=== PATIENT | male | born 1975 | race American Indian/Alaskan Native ===

== ENCOUNTER 2018-01-04 01:47 | Emergency (ER) | payer BC, OTHER ==
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
[2018-01-04 02:15] LABS: CHLORIDE,CL 105 mmol/L (101-111); SODIUM,NA 137 mmol/L (135-145)
[2018-01-04] MEDS ORDERED: Phenytoin 1,000 MG in Sodium Chloride 0.9% 100 ML IV ONE (02:43)
[2018-01-04] MEDS ORDERED: Sodium Chloride 0.9% 1,000 ML IV ONE (03:05)
== END 2018-01-04 03:44 ==
LOC: DL.ED 01:47
DX: R56.9 Unspecified convulsions (principal); S01.512A Laceration without foreign body of oral cavity, initial encounter; S40.812A Abrasion of left upper arm, initial encounter; R23.3 Spontaneous ecchymoses; W19.XXXA Unspecified fall, initial encounter; Y92.009 Unspecified place in unspecified non-institutional (private) residence as the place of occurrence of the external cause
CPT/HCPCS: 36415; 70450; 72125; 80053; 80305; 81001; 83735; 85025; 85610; 96365; 99285; G0480; J1165; J7030; J7050

== ENCOUNTER 2019-09-13 20:38 | Emergency (ER) | payer BC, OTHER ==
[2019-09-13 22:13] VITALS: BP 133/89; PULSE 81
[2019-09-13] MEDS ORDERED: Acyclovir 200 MG Cap ONE (23:19)
--- NOTE | 2019-09-13 23:41 | EDM.PDOC ---
ED HPI GENERAL MEDICAL PROBLEM - General Chief Complaint: Skin Complaint Stated Complaint: POSSIBLE SHINGLES Time Seen by Provider: 09/13/19 21:50 Source of Information: Reports: Patient, RN History Limitations: Reports: No Limitations - History of Present Illness INITIAL COMMENTS - FREE TEXT/NARRATIVE: ED with c/o rash to left side, concerned if shingles. 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 Hx brain cancer, Recent wound infection scalp incision, completed antibiotic course. Wound still draining but better. Currently taking Keppra. Not on steroids. Treatments [employer]: Reports: NSAIDS Left Abdomen Pain Score (Numeric/FACES): 8 - Related Data Allergies Allergy/AdvReac Type Severity Reaction Status Date / Time No Known Allergies Allergy Verified 09/13/19 22:13 Home Meds: Home Meds levETIRAcetam [Keppra] 500 mg PO BID 09/13/19 [History] Past Medical History - Past Health History Medical/Surgical History: Denies Medical/Surgical History HEENT History: Reports: Impaired Vision Musculoskeletal History: Reports: Fracture Neurological History: Reports: Seizure Oncologic (Cancer) History: Reports: Other (See Below) Other Oncologic History: Brain CA and brain surg. Dermatologic History: Reports: None Social & Family History - Family History Family Medical History: Noncontributory - Tobacco Use Smoking Status *Q: Never Smoker Second Hand Smoke Exposure: No - Caffeine Use Caffeine Use: Reports: Coffee - Recreational Drug Use Recreational Drug Use: No ED ROS GENERAL - Review of Systems Review Of Systems: Comprehensive ROS is negative, except as noted in HPI. ED EXAM, SKIN/RASH Exam: See Below Exam Limited By: No Limitations General Appearance: Alert, No Apparent Distress Ears: Normal External Exam Nose: Normal Inspection Throat/Mouth: Normal Inspection Head: Normocephalic, Other (mid parietal healed incision no redness, 2mm open are draining cloudy thick discharge.) Respiratory/Chest: No Respiratory Distress, Lungs Clear, Normal Breath Sounds Cardiovascular: Normal Peripheral Pulses Back Exam: Other (left lateral waist rash ) Psychiatric: Normal Affect, Normal Mood Skin: Warm, Dry, Zoster-Like Rash (left lateral upper waist and left mid flank) Location, Skin: Back Characteristics: Maculopapular, Vesicular Course - Vital Signs Last Recorded V/S: Last Vital Signs Temp 97.3 F 09/13/19 21:45 Pulse 81 09/13/19 21:45 Resp 16 09/13/19 21:45 BP 133/89 09/13/19 21:45 Pulse Ox 100 09/13/19 21:45 - Orders/Labs/Meds Meds: Medications Discontinued Medications Generic Name Dose Route Start Last Admin Trade Name [place] PRN Reason Stop Dose Admin Acyclovir Confirm 09/13/19 23:19 Zovirax Administered 09/13/19 23:20 Dose 800 mg .ROUTE .STK-MED ONE Acyclovir Confirm 09/14/19 00:05 Zovirax Administered 09/14/19 00:06 Dose 4,000 mg .ROUTE .STK-MED ONE Departure - Departure Time of Disposition: 23:38 Disposition: Home, Self-Care 01 Condition: Good Clinical Impression: Shingles outbreak Qualifiers: Herpes zoster complications: disseminated zoster Qualified Code(s): B02.7 - Disseminated zoster - Discharge Information *PRESCRIPTION DRUG MONITORING PROGRAM REVIEWED*: No *COPY OF PRESCRIPTION DRUG MONITORING REPORT IN PATIENT KATHY: No Instructions: Shingles, [id number] Referrals: PCP,None [Primary Care Provider] - Forms: ED Department Discharge Additional Instructions: tylenol 650mg every 4 hours as needed for discomfort ACyclovir 800mg 5 times daily for one week clinic follow up as needed recheck if fevers, severe pain or redness Keep areas covered Avoid those with poor immune systems
[2019-09-14] MEDS ORDERED: Acyclovir 200 MG Cap ONE (00:05)
== END 2019-09-13 23:45 | disposition home or self-care (01) ==
LOC: DL.ED 20:38
DX: B02.7 Disseminated zoster (principal); R56.9 Unspecified convulsions; Z79.899 Other long term (current) drug therapy; Z85.841 Personal history of malignant neoplasm of brain
CPT/HCPCS: 99283

== ENCOUNTER 2020-03-26 20:58 | Emergency (ER) | payer BC, OTHER ==
[2020-03-26] MEDS ORDERED: LORazepam 2 MG/ML SDV IVPUSH PRN (21:07)
[2020-03-26] MEDS ORDERED: Sodium Chloride 0.9% 1,000 ML IV SCH (21:15)
--- NOTE | 2020-03-26 21:16 | CT ---
PROCEDURE INFORMATION: Exam: CT Head Without Contrast Exam date and time: 03/26/2020 9:07 PM Age: 45 years old Clinical indication: Weakness, facial; Prior surgery; Surgery date: 6+ months; Additional info: Right facial weakness TECHNIQUE: Imaging protocol: Computed tomography of the head without contrast. Radiation optimization: All CT scans at this facility use at least one of these dose optimization techniques: automated exposure control; mA and/or kV adjustment per patient size (includes targeted exams where dose is matched to clinical indication); or iterative reconstruction. Other technique: STROKE PROTOCOL was implemented. COMPARISON: CT Head wo Cont 01/04/2018 2:04 AM FINDINGS: Brain: Encephalomalacia changes left posterior parietal lobe. No hemorrhage, mass effect or midline shift. Age-related atrophy and chronic white matter ischemic changes, with no evidence of an acute intracranial abnormality. Ventricles: Normal. No ventriculomegaly. Bones/joints: No acute fracture. Postoperative changes of the left parietal bone. Sinuses: Visualized sinuses are unremarkable. No fluid levels. Mastoid air cells: Visualized mastoid air cells are well aerated. Soft tissues: No acute changes IMPRESSION: 1. Encephalomalacia changes left posterior parietal lobe. 2. No hemorrhage, mass effect or midline shift. Follow-up MRI of the brain may be of further benefit, as clinically warranted. 3. Age-related atrophy and chronic white matter ischemic changes, with no evidence of an acute intracranial abnormality. ASSESSMENT: ASPECTS ([place] Stroke Program Early CT Score) is 10.
--- NOTE | 2020-03-26 21:42 | EDM.PDOC ---
ED HPI GENERAL MEDICAL PROBLEM - General Chief Complaint: Neuro Symptoms/Deficits Stated Complaint: AMBULANCE Time Seen by Provider: 03/26/20 21:00 Source of Information: Reports: Patient History Limitations: Reports: No Limitations - History of Present Illness INITIAL COMMENTS - FREE TEXT/NARRATIVE: ED via [facility] with report of possible stroke experienced right facial weakness, mouth droop difficulty talking around 2015 lasted less than 5 minutes, took 250mg of kepra and within one minute reported symptoms resolved. had weaned of keppra 3 weeks ago. 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 Reports no residual effects other than problems with incision not healing. Patient immediately to CT on arrival. - Related Data Allergies Allergy/AdvReac Type Severity Reaction Status Date / Time No Known Allergies Allergy Verified 03/26/20 21:48 Home Meds: Home Meds . [No Known Home Meds] 03/26/20 [History] Past Medical History - Past Health History Medical/Surgical History: Denies Medical/Surgical History HEENT History: Reports: Impaired Vision Musculoskeletal History: Reports: Fracture Neurological History: Reports: Seizure Oncologic (Cancer) History: Reports: Other (See Below) Other Oncologic History: Brain CA and brain surg. Dermatologic History: Reports: None Social & Family History - Family History Family Medical History: Noncontributory - Caffeine Use Caffeine Use: Reports: Coffee ED ROS GENERAL - Review of Systems Review Of Systems: See Below Constitutional: Reports: Weakness (right lasted less than 5 minutes). Denies: Fever, Chills, Diaphoresis HEENT: Reports: No Symptoms. Denies: Vision Change Respiratory: Reports: No Symptoms Cardiovascular: Reports: No Symptoms : Reports: No Symptoms Skin: Reports: Wound (scalp chronic since original surgery, periodic pressure in incision area then opens up and drains fluid) Neurological: Reports: Trouble Speaking, Difficulty Walking, Weakness (right sided) ED EXAM, NEURO - Physical Exam Exam: See Below Exam Limited By: No Limitations General Appearance: Alert, No Apparent Distress Eye Exam: Bilateral Eye: EOMI, Normal Inspection, PERRL Ears: Normal External Exam, Normal TMs Nose: Normal Inspection Throat/Mouth: Normal Inspection Head Exam: Atraumatic, Other (post surgical incision area open posterior parietal ) Respiratory/Chest: No Respiratory Distress, Lungs Clear, Normal Breath Sounds Cardiovascular: Normal Peripheral Pulses, Regular Rate, Rhythm GI/Abdominal: Normal Bowel Sounds, Soft Neurological: Alert, Normal Mood/Affect, Normal Dorsiflexion, Oriented x 3, Other (NIH ) ). No: Tremor, Straight Leg Raise (L), Straight Leg Raise (R) Back Exam: Normal Inspection Extremities: Normal Inspection Psychiatric: Normal Affect, Normal Mood Skin Exam: Warm, Wound/Incision (scalp) EKG INTERPRETATION Rhythm: NSR Course - Vital Signs Last Recorded V/S: Last Vital Signs Temp 99.3 F 03/26/20 21:27 Pulse 73 03/26/20 21:27 Resp 15 03/26/20 21:27 BP 144/94 H 03/26/20 21:27 Pulse Ox 99 03/26/20 21:27 - Orders/Labs/Meds Orders: Active Orders 24 hr Category Date Time Status Blood Glucose Check, Bedside [] ONETIME Care 03/26/20 21:08 Active EKG Documentation Completion [] STAT Care 03/26/20 21:08 Active CULTURE WOUND + SMEAR [] Stat Lab 03/26/20 21:11 Ordered LORazepam [Ativan] Med 03/26/20 21:07 Active 1 mg IVPUSH ONETIME PRN Sodium Chloride 0.9% [Normal Saline] 1,000 ml Med 03/26/20 21:15 Active IV ASDIRECTED Medication Orders Sodium Chloride (Normal Saline) 1,000 mls @ 125 mls/hr IV ASDIRECTED DEVANG Last Admin: 03/26/20 21:20 Dose: 125 mls/hr Lorazepam (Ativan) 1 mg IVPUSH ONETIME PRN PRN Reason: Seizures Labs: Laboratory Tests 03/26/20 03/26/20 03/26/20 Range/Units 21:08 21:08 21:23 WBC 6.2 (5.0-10.0) 10^3/uL RBC 4.11 L (4.6-6.2) 10^6/uL Hgb 13.3 L (14.0-18.0) g/dL Hct 39.8 L (40.0-54.0) % MCV 96.8 D (80-100) fL MCH 32.4 (27.0-34.0) pg MCHC 33.4 (33.0-35.0) g/dL Plt Count 240 (150-450) 10^3/uL Neut % (Auto) 56.6 (42.2-75.2) % Lymph % (Auto) 28.7 (20.5-50.1) % [place] % (Auto) 10.5 H (2-8) % Eos % (Auto) 3.7 H (1.0-3.0) % Baso % (Auto) 0.5 (0.0-1.0) % PT (9.0-12.0) SEC INR (0.9-1.2) Sodium (136-145) mmol/L Potassium (3.5-5.1) mmol/L Chloride (98-107) mmol/L Carbon Dioxide (21-32) mmol/L Anion Gap (7-13) mEq/L BUN (7-18) mg/dL Creatinine (0.70-1.30) mg/dL Est Cr Clr Drug Dosing mL/min Estimated GFR (MDRD) BUN/Creatinine Ratio (No establ ref range) Glucose (74-99) mg/dL Lactic Acid (0.4-2.0) mmol/L Calcium (8.5-10.1) mg/dL Magnesium (1.8-2.4) mg/dL Total Bilirubin (0.2-1.0) mg/dL AST (15-37) U/L ALT (16-63) U/L Alkaline Phosphatase (46-116) U/L Ammonia (11-32) umol/L C-Reactive Protein (0.0-0.9) mg/dL Total Protein (6.4-8.2) g/dL Albumin (3.4-5.0) g/dL Globulin Albumin/Globulin Ratio Urine Color Yellow (YELLOW) Urine Appearance Clear (CLEAR) Urine pH 6.0 (5.0-9.0) Ur Specific Alvin 1.015 (1.005-1.030) Urine Protein Negative (NEGATIVE) Urine Glucose (UA) Negative (NEGATIVE) Urine Ketones Negative (NEGATIVE) Urine Occult Blood Negative (NEGATIVE) Urine Nitrite Negative (NEGATIVE) Urine Bilirubin Negative (NEGATIVE) Urine Urobilinogen 0.2 (0.2-1.0) mg/dL Ur Leukocyte Esterase Negative (NEGATIVE) Urine RBC 0-5 /HPF Urine WBC 0-5 (0-5/HPF) /HPF Ur Epithelial Cells Rare (NOT SEEN) /HPF Amorphous Sediment Rare (NOT SEEN) /HPF Urine Bacteria Rare (0-FEW/HPF) /HPF Urine Mucus Rare (NOT SEEN) /LPF Urine Opiates Screen Negative (NEGATIVE) Ur Oxycodone Screen Negative (NEGATIVE) Urine Methadone Screen Negative (NEGATIVE) Ur Barbiturates Screen Negative (NEGATIVE) U Tricyclic Antidepress Negative (NEGATIVE) Ur Phencyclidine Scrn Negative (NEGATIVE) Ur Amphetamine Screen Negative (NEGATIVE) U Methamphetamines Scrn Negative (NEGATIVE) Urine MDMA Screen Negative (NEGATIVE) U Benzodiazepines Scrn Negative (NEGATIVE) Urine Cocaine Screen Negative (NEGATIVE) U Marijuana (THC) Screen Negative (NEGATIVE) Ethyl Alcohol (0) mg/dL 03/26/20 03/26/20 03/26/20 Range/Units 21:23 21:23 21:23 WBC (5.0-10.0) 10^3/uL RBC (4.6-6.2) 10^6/uL Hgb (14.0-18.0) g/dL Hct (40.0-54.0) % MCV (80-100) fL MCH (27.0-34.0) pg MCHC (33.0-35.0) g/dL Plt Count (150-450) 10^3/uL Neut % (Auto) (42.2-75.2) % Lymph % (Auto) (20.5-50.1) % [place] % (Auto) (2-8) % Eos % (Auto) (1.0-3.0) % Baso % (Auto) (0.0-1.0) % PT 9.8 (9.0-12.0) SEC INR 1.0 (0.9-1.2) Sodium 141 (136-145) mmol/L Potassium 3.9 (3.5-5.1) mmol/L Chloride 107 (98-107) mmol/L Carbon Dioxide 27 (21-32) mmol/L Anion Gap 10.9 (7-13) mEq/L BUN 16 (7-18) mg/dL Creatinine 1.25 (0.70-1.30) mg/dL Est Cr Clr Drug Dosing 72.20 mL/min Estimated GFR (MDRD) > 60 BUN/Creatinine Ratio 12.8 (No establ ref range) Glucose 105 H (74-99) mg/dL Lactic Acid (0.4-2.0) mmol/L Calcium 9.1 (8.5-10.1) mg/dL Magnesium 2.0 (1.8-2.4) mg/dL Total Bilirubin 0.5 (0.2-1.0) mg/dL AST 17 (15-37) U/L ALT 31 (16-63) U/L Alkaline Phosphatase 54 (46-116) U/L Ammonia < 10 L (11-32) umol/L C-Reactive Protein < 0.2 (0.0-0.9) mg/dL Total Protein 7.4 (6.4-8.2) g/dL Albumin 3.6 (3.4-5.0) g/dL Globulin 3.8 Albumin/Globulin Ratio 0.9 Urine Color (YELLOW) Urine Appearance (CLEAR) Urine pH (5.0-9.0) Ur Specific Alvin (1.005-1.030) Urine Protein (NEGATIVE) Urine Glucose (UA) (NEGATIVE) Urine Ketones (NEGATIVE) Urine Occult Blood (NEGATIVE) Urine Nitrite (NEGATIVE) Urine Bilirubin (NEGATIVE) Urine Urobilinogen (0.2-1.0) mg/dL Ur Leukocyte Esterase (NEGATIVE) Urine RBC /HPF Urine WBC (0-5/HPF) /HPF Ur Epithelial Cells (NOT SEEN) /HPF Amorphous Sediment (NOT SEEN) /HPF Urine Bacteria (0-FEW/HPF) /HPF Urine Mucus (NOT SEEN) /LPF Urine Opiates Screen (NEGATIVE) Ur Oxycodone Screen (NEGATIVE) Urine Methadone Screen (NEGATIVE) Ur Barbiturates Screen (NEGATIVE) U Tricyclic Antidepress (NEGATIVE) Ur Phencyclidine Scrn (NEGATIVE) Ur Amphetamine Screen (NEGATIVE) U Methamphetamines Scrn (NEGATIVE) Urine MDMA Screen (NEGATIVE) U Benzodiazepines Scrn (NEGATIVE) Urine Cocaine Screen (NEGATIVE) U Marijuana (THC) Screen (NEGATIVE) Ethyl Alcohol < 3 (0) mg/dL 03/26/20 Range/Units 21:23 WBC (5.0-10.0) 10^3/uL RBC (4.6-6.2) 10^6/uL Hgb (14.0-18.0) g/dL Hct (40.0-54.0) % MCV (80-100) fL MCH (27.0-34.0) pg MCHC (33.0-35.0) g/dL Plt Count (150-450) 10^3/uL Neut % (Auto) (42.2-75.2) % Lymph % (Auto) (20.5-50.1) % [place] % (Auto) (2-8) % Eos % (Auto) (1.0-3.0) % Baso % (Auto) (0.0-1.0) % PT (9.0-12.0) SEC INR (0.9-1.2) Sodium (136-145) mmol/L Potassium (3.5-5.1) mmol/L Chloride (98-107) mmol/L Carbon Dioxide (21-32) mmol/L Anion Gap (7-13) mEq/L BUN (7-18) mg/dL Creatinine (0.70-1.30) mg/dL Est Cr Clr Drug Dosing mL/min Estimated GFR (MDRD) BUN/Creatinine Ratio (No establ ref range) Glucose (74-99) mg/dL Lactic Acid 1.1 (0.4-2.0) mmol/L Calcium (8.5-10.1) mg/dL Magnesium (1.8-2.4) mg/dL Total Bilirubin (0.2-1.0) mg/dL AST (15-37) U/L ALT (16-63) U/L Alkaline Phosphatase (46-116) U/L Ammonia (11-32) umol/L C-Reactive Protein (0.0-0.9) mg/dL Total Protein (6.4-8.2) g/dL Albumin (3.4-5.0) g/dL Globulin Albumin/Globulin Ratio Urine Color (YELLOW) Urine Appearance (CLEAR) Urine pH (5.0-9.0) Ur Specific [place]vin (1.005-1.030) Urine Protein (NEGATIVE) Urine Glucose (UA) (NEGATIVE) Urine Ketones (NEGATIVE) Urine Occult Blood (NEGATIVE) Urine Nitrite (NEGATIVE) Urine Bilirubin (NEGATIVE) Urine Urobilinogen (0.2-1.0) mg/dL Ur Leukocyte Esterase (NEGATIVE) Urine RBC /HPF Urine WBC (0-5/HPF) /HPF Ur Epithelial Cells (NOT SEEN) /HPF Amorphous Sediment (NOT SEEN) /HPF Urine Bacteria (0-FEW/HPF) /HPF Urine Mucus (NOT SEEN) /LPF Urine Opiates Screen (NEGATIVE) Ur Oxycodone Screen (NEGATIVE) Urine Methadone Screen (NEGATIVE) Ur Barbiturates Screen (NEGATIVE) U Tricyclic Antidepress (NEGATIVE) Ur Phencyclidine Scrn (NEGATIVE) Ur Amphetamine Screen (NEGATIVE) U Methamphetamines Scrn (NEGATIVE) Urine MDMA Screen (NEGATIVE) U Benzodiazepines Scrn (NEGATIVE) Urine Cocaine Screen (NEGATIVE) U Marijuana (THC) Screen (NEGATIVE) Ethyl Alcohol (0) mg/dL Meds: Medications Generic Name Dose Route Start Last Admin Trade Name Freq PRN Reason Stop Dose Admin Sodium Chloride 1,000 mls @ 125 mls/hr 03/26/20 21:15 03/26/20 21:20 Normal Saline IV 125 mls/hr ASDIRECTED DEVANG Administration Lorazepam 1 mg 03/26/20 21:07 Ativan IVPUSH ONETIME PRN Seizures Discontinued Medications Generic Name Dose Route Start Last Admin Trade Name Freq PRN Reason Stop Dose Admin Levetiracetam 250 mg/ Sodium 102.5 mls @ 400 mls/hr 03/26/20 21:31 03/26/20 21:38 Chloride IV 03/26/20 21:45 400 mls/hr ONETIME ONE Administration - Re-Assessments/Exams Free Text/Narrative Re-Assessment/Exam: 03/26/20 22:28 IV infusion Keppra. Patient reports neck muscles more relaxed after. Denies other sy. Spech remains clear. alert oriented. moving all extremities. Dr Howard accepting. [place] via [facility]. Departure - Departure Time of Disposition: 22:25 Disposition: DC/Tfer to Acute Hospital 02 Condition: Good Clinical Impression: Transient neurological symptoms, Hx of seizure disorder, History of glioma, Increased wound drainage - Discharge Information *PRESCRIPTION DRUG MONITORING PROGRAM REVIEWED*: No *COPY OF PRESCRIPTION DRUG MONITORING REPORT IN PATIENT KATHY: No Forms: ED Department Discharge, Interfacility Transfer EMTALA Sepsis Event Note (ED) - Focused Exam Vital Signs: Vital Signs Temp Pulse Resp BP Pulse Ox 03/26/20 21:27 99.3 F 73 15 144/94 H 99 - My Orders Last 24 Hours: My Active Orders 03/26/20 21:07 LORazepam [Ativan] 1 mg IVPUSH ONETIME PRN 03/26/20 21:08 Blood Glucose Check, Bedside [RC] ONETIME EKG Documentation Completion [RC] STAT 03/26/20 21:11 CULTURE WOUND + SMEAR [RM] Stat 03/26/20 21:15 Sodium Chloride 0.9% [Normal Saline] 1,000 ml IV ASDIRECTED - Assessment/Plan Last 24 Hours: My Active Orders 03/26/20 21:07 LORazepam [Ativan] 1 mg IVPUSH ONETIME PRN 03/26/20 21:08 Blood Glucose Check, Bedside [] ONETIME EKG Documentation Completion [RC] STAT 03/26/20 21:11 CULTURE WOUND + SMEAR [RM] Stat 03/26/20 21:15 Sodium Chloride 0.9% [Normal Saline] 1,000 ml IV ASDIRECTED
[2020-03-26 21:53] LABS: ANION GAP 10.9 mEq/L (7-13); CHLORIDE,CL 107 mmol/L (98-107); SODIUM,NA 141 mmol/L (136-145)
== END 2020-03-26 22:40 ==
LOC: DL.ED 20:58
DX: L76.82 Other postprocedural complications of skin and subcutaneous tissue (principal); R29.818 Other symptoms and signs involving the nervous system; G40.909 Epilepsy, unspecified, not intractable, without status epilepticus; Z85.841 Personal history of malignant neoplasm of brain
CPT/HCPCS: 36415; 70450; 80053; 80305-QW; 80307; 81001; 82140; 82962; 83605; 83735; 85025; 85610; 86140; 87070; 87077; 87186; 87205; 93005; 96365; 99285-25; J1953; J7030; J7050

== ENCOUNTER 2020-10-13 11:38 | Emergency (ER) | payer BC, OTHER ==
--- NOTE | 2020-10-13 12:10 | CT ---
PROCEDURE INFORMATION: Exam: CT Head Without Contrast Exam date and time: 10/13/2020 11:50 AM Age: 45 years old Clinical indication: Other: Right sided weakness TECHNIQUE: Imaging protocol: Computed tomography of the head without contrast. Radiation optimization: All CT scans at this facility use at least one of these dose optimization techniques: automated exposure control; mA and/or kV adjustment per patient size (includes targeted exams where dose is matched to clinical indication); or iterative reconstruction. COMPARISON: CT Head wo Cont 03/26/2020 9:07 PM FINDINGS: Brain: Age-related cerebral atrophy and microangiopathic white matter changes. Left posterior parietal cortex and white matter encephalomalacia. No hemorrhage. No cerebral edema or midline shift. No extra-axial fluid collections. No mass effect. Cerebral ventricles: No ventriculomegaly. Bones/joints: Left posterior parietal skull gap compatible with craniectomy. No acute fracture. Paranasal sinuses: Visualized sinuses are unremarkable. Minimal mucosal thickening left posterior ethmoid sinus. No fluid levels. Mastoid air cells: Visualized mastoid air cells are well aerated. Soft tissues: Unremarkable. IMPRESSION: 1. No acute intracranial abnormality. 2. Left posterior parietal craniectomy with chronic posterior parietal lobe encephalomalacia. 3. 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
--- NOTE | 2020-10-13 12:26 | EDM.PDOC ---
ED HPI GENERAL MEDICAL PROBLEM - General Chief Complaint: General Stated Complaint: SEIZURE Time Seen by Provider: 10/13/20 12:15 Source of Information: Reports: Patient, RN, RN Notes Reviewed History Limitations: Reports: No Limitations - History of Present Illness INITIAL COMMENTS - FREE TEXT/NARRATIVE: Patient is a 45-year-old male who presents to ER with complaint of feeling as if he is going to have a focal seizure. 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 Has had a few surgeries since then to remove a bone flap that was not healing correctly. Most recently had an MRI in [place] about 1 week ago. Patient states this morning he got the feeling of aura of possible oncoming seizure. States he felt as though his the right side of his face was drooping. Stated he also got the feeling that he needed to defecate. He said this is happened in the past and once he had a bowel movement the symptoms resolved. When he got to the ER he did have a very large bowel movement, and he states the symptoms have since resolved since having the bowel movement. Symptoms began about 11:00 this morning. He states he is on Keppra he took 500 at 9 AM this morning, and last at midnight last night. States he has had nothing to eat or drink. He states he did not have a seizure, just felt as though someone was coming on. Again the last time this happened he had the feeling of needing to defecate, and his Keppra level was low, needed an additional IV Keppra. He admits to some right-sided weakness which has since resolved. Denies fever chills, diarrhea, nausea or vomiting, headache, chest pain, shortness of breath. He states last focal seizure was in March. NIH SS = 0 Onset: Today, Sudden - Related Data Allergies Allergy/AdvReac Type Severity Reaction Status Date / Time No Known Allergies Allergy Verified 10/13/20 12:00 Home Meds: Home Meds Tigecycline 50 mg IV DAILY 10/13/20 [History] ceFAZolin Sodium In 0.9 % NaCl [Cefazolin 2 G/100 ml-0.9% NaCl] 2 gm IV DAILY 10/13/20 [History] cefOXitin Sodium [Cefoxitin] 1 gm IV DAILY 10/13/20 [History] levETIRAcetam [Keppra XR] 500 mg PO BID 10/13/20 [History] Past Medical History - Past Health History Medical/Surgical History: Denies Medical/Surgical History HEENT History: Reports: Impaired Vision Cardiovascular History: Reports: None Respiratory History: Reports: None Gastrointestinal History: Reports: None Genitourinary History: Reports: None Musculoskeletal History: Reports: Fracture, Other (See Below) Other Musculoskeletal History: missing bone flap to left side of head Neurological History: Reports: Seizure Psychiatric History: Reports: None Endocrine/Metabolic History: Reports: None Hematologic History: Reports: None Immunologic History: Reports: None Oncologic (Cancer) History: Reports: Other (See Below) Other Oncologic History: Brain CA and brain surg. Dermatologic History: Reports: None - Infectious Disease History Infectious Disease History: Reports: None - Past Surgical History Head Surgeries/Procedures: Reports: None Oncologic Surgical History: Reports: Other (See Below) Other Oncologic Surgeries/Procedures: Brain tumor removal L) side of brain Social & Family History - Family History Family Medical History: No Pertinent Family History - Tobacco Use Tobacco Use Status *Q: Never Tobacco User - Caffeine Use Caffeine Use: Reports: None - Recreational Drug Use Recreational Drug Use: No ED ROS GENERAL - Review of Systems Review Of Systems: Comprehensive ROS is negative, except as noted in HPI. ED EXAM, GENERAL - Physical Exam Exam: See Below Exam Limited By: No Limitations General Appearance: Alert, WD/WN, No Apparent Distress Eye Exam: Bilateral Eye: EOMI, Normal Inspection, PERRL (3, brisk) Ears: Normal External Exam, Hearing Grossly Normal Nose: Normal Inspection Throat/Mouth: Normal Inspection, Normal Voice, No Airway Compromise Head: Atraumatic, Other (Left side deformity from craniotomy and extraction of glioblastoma) Neck: Normal Inspection, Supple, Non-Tender, Full Range of Motion Respiratory/Chest: No Respiratory Distress, Lungs Clear, Normal Breath Sounds, No Accessory Muscle Use, Chest Non-Tender Cardiovascular: Normal Peripheral Pulses, Regular Rate, Rhythm, No Edema, No Gallop, No JVD, No Murmur, No Rub Peripheral Pulses: 2+: Radial (L), Radial (R) GI/Abdominal: Normal Bowel Sounds, Soft, Non-Tender (Male) Exam: Deferred Rectal (Males) Exam: Deferred Back Exam: Normal Inspection, Full Range of Motion, NT Extremities: Normal Inspection, Normal Range of Motion, Non-Tender, Normal Capillary Refill, No Pedal Edema Neurological: Alert, Oriented, CN II-XII Intact, Normal Cognition, Normal Gait, Normal Reflexes, No Motor/Sensory Deficits Psychiatric: Normal Affect, Normal Mood Skin Exam: Warm, Dry, Intact, Normal Color, No Rash Lymphatic: No Adenopathy Course - Vital Signs Last Recorded V/S: Last Vital Signs Temp 97.6 F 10/13/20 12:03 Pulse 88 10/13/20 12:03 Resp 18 10/13/20 12:03 BP 147/91 H 10/13/20 12:03 Pulse Ox 99 10/13/20 12:03 - Orders/Labs/Meds Orders: Active Orders 24 hr Category Date Time Status EKG Documentation Completion [RC] STAT Care 10/13/20 12:06 Active LEVETIRACETAM, S [REF] Stat Lab 10/13/20 12:21 Received Labs: Laboratory Tests 10/13/20 10/13/20 10/13/20 Range/Units 12:12 12:12 12:21 WBC 5.2 (5.0-10.0) 10^3/uL RBC 3.73 L (4.6-6.2) 10^6/uL Hgb 12.4 L (14.0-18.0) g/dL Hct 36.6 L (40.0-54.0) % MCV 98.1 (80-100) fL MCH 33.2 (27.0-34.0) pg MCHC 33.9 (33.0-35.0) g/dL Plt Count 279 (150-450) 10^3/uL Neut % (Auto) 63.8 (42.2-75.2) % Lymph % (Auto) 21.0 (20.5-50.1) % Early % (Auto) 10.2 H (2-8) % Eos % (Auto) 4.6 H (1.0-3.0) % Baso % (Auto) 0.4 (0.0-1.0) % PT (9.0-12.0) SEC INR (0.9-1.2) Sodium (136-145) mmol/L Potassium (3.5-5.1) mmol/L Chloride (98-107) mmol/L Carbon Dioxide (21-32) mmol/L Anion Gap (7-13) mEq/L BUN (7-18) mg/dL Creatinine (0.70-1.30) mg/dL Est Cr Clr Drug Dosing mL/min Estimated GFR (MDRD) BUN/Creatinine Ratio (No establ ref range) Glucose (74-99) mg/dL Calcium (8.5-10.1) mg/dL Total Bilirubin (0.2-1.0) mg/dL AST (15-37) U/L ALT (16-63) U/L Alkaline Phosphatase (46-116) U/L Total Protein (6.4-8.2) g/dL Albumin (3.4-5.0) g/dL Globulin Albumin/Globulin Ratio Urine Color Yellow (YELLOW) Urine Appearance Clear (CLEAR) Urine pH 5.5 (5.0-9.0) Ur Specific [place] >= 1.030 (1.005-1.030) Urine Protein Negative (NEGATIVE) Urine Glucose (UA) Negative (NEGATIVE) Urine Ketones Negative (NEGATIVE) Urine Occult Blood Trace-intact H (NEGATIVE) Urine Nitrite Negative (NEGATIVE) Urine Bilirubin Negative (NEGATIVE) Urine Urobilinogen 0.2 (0.2-1.0) mg/dL Ur Leukocyte Esterase Negative (NEGATIVE) U Hyaline Cast (Auto) Moderate Urine RBC 0-5 /HPF Urine WBC 0-5 (0-5/HPF) /HPF Ur Epithelial Cells Few (NOT SEEN) /HPF Fine Granular Casts Few H (NOT SEEN) /LPF Urine Other See note Urine Opiates Screen Negative (NEGATIVE) Ur Oxycodone Screen Negative (NEGATIVE) Urine Methadone Screen Negative (NEGATIVE) Ur Barbiturates Screen Negative (NEGATIVE) U Tricyclic Antidepress Negative (NEGATIVE) Ur Phencyclidine Scrn Negative (NEGATIVE) Ur Amphetamine Screen Negative (NEGATIVE) U Methamphetamines Scrn Negative (NEGATIVE) Urine MDMA Screen Negative (NEGATIVE) U Benzodiazepines Scrn Negative (NEGATIVE) Urine Cocaine Screen Negative (NEGATIVE) U Marijuana (THC) Screen Negative (NEGATIVE) Ethyl Alcohol (0) mg/dL 10/13/20 10/13/20 Range/Units 12:21 12:21 WBC (5.0-10.0) 10^3/uL RBC (4.6-6.2) 10^6/uL Hgb (14.0-18.0) g/dL Hct (40.0-54.0) % MCV (80-100) fL MCH (27.0-34.0) pg MCHC (33.0-35.0) g/dL Plt Count (150-450) 10^3/uL Neut % (Auto) (42.2-75.2) % Lymph % (Auto) (20.5-50.1) % Early % (Auto) (2-8) % Eos % (Auto) (1.0-3.0) % Baso % (Auto) (0.0-1.0) % PT 9.9 (9.0-12.0) SEC INR 1.0 (0.9-1.2) Sodium 139 (136-145) mmol/L Potassium 4.0 (3.5-5.1) mmol/L Chloride 106 (98-107) mmol/L Carbon Dioxide 22 (21-32) mmol/L Anion Gap 15.0 H (7-13) mEq/L BUN 20 H (7-18) mg/dL Creatinine 1.29 (0.70-1.30) mg/dL Est Cr Clr Drug Dosing 84.08 mL/min Estimated GFR (MDRD) > 60 BUN/Creatinine Ratio 15.5 (No establ ref range) Glucose 97 (74-99) mg/dL Calcium 8.7 (8.5-10.1) mg/dL Total Bilirubin 0.6 (0.2-1.0) mg/dL AST 21 (15-37) U/L ALT 40 (16-63) U/L Alkaline Phosphatase 86 (46-116) U/L Total Protein 7.3 (6.4-8.2) g/dL Albumin 3.3 L (3.4-5.0) g/dL Globulin 4.0 Albumin/Globulin Ratio 0.83 Urine Color (YELLOW) Urine Appearance (CLEAR) Urine pH (5.0-9.0) Ur Specific [place] (1.005-1.030) Urine Protein (NEGATIVE) Urine Glucose (UA) (NEGATIVE) Urine Ketones (NEGATIVE) Urine Occult Blood (NEGATIVE) Urine Nitrite (NEGATIVE) Urine Bilirubin (NEGATIVE) Urine Urobilinogen (0.2-1.0) mg/dL Ur Leukocyte Esterase (NEGATIVE) U Hyaline Cast (Auto) Urine RBC /HPF Urine WBC (0-5/HPF) /HPF Ur Epithelial Cells (NOT SEEN) /HPF Fine Granular Casts (NOT SEEN) /LPF Urine Other Urine Opiates Screen (NEGATIVE) Ur Oxycodone Screen (NEGATIVE) Urine Methadone Screen (NEGATIVE) Ur Barbiturates Screen (NEGATIVE) U Tricyclic Antidepress (NEGATIVE) Ur Phencyclidine Scrn (NEGATIVE) Ur Amphetamine Screen (NEGATIVE) U Methamphetamines Scrn (NEGATIVE) Urine MDMA Screen (NEGATIVE) U Benzodiazepines Scrn (NEGATIVE) Urine Cocaine Screen (NEGATIVE) U Marijuana (THC) Screen (NEGATIVE) Ethyl Alcohol < 3 (0) mg/dL Meds: Medications Discontinued Medications Generic Name Dose Route Start Last Admin Trade Name Freq PRN Reason Stop Dose Admin Levetiracetam 500 mg/ Premix 100 mls @ 400 mls/hr 10/13/20 13:04 10/13/20 13:26 IV 10/13/20 13:05 400 mls/hr ONETIME ONE Administration - Radiology Interpretation Free Text/Narrative:: Head CT wo contrast: PROCEDURE INFORMATION: Exam: CT Head Without Contrast Exam date and time: 10/13/2020 11:50 AM Age: 45 years old Clinical indication: Other: Right sided weakness TECHNIQUE: Imaging protocol: Computed tomography of the head without contrast. Radiation optimization: All CT scans at this facility use at least one of these dose optimization techniques: automated exposure control; mA and/or kV adjustment per patient size (includes targeted exams where dose is matched to clinical indication); or iterative reconstruction. COMPARISON: CT Head wo Cont 03/26/2020 9:07 PM FINDINGS: Brain: Age-related cerebral atrophy and microangiopathic white matter changes. Left posterior parietal cortex and white matter encephalomalacia. No hemorrhage. No cerebral edema or midline shift. No extra-axial fluid collections. No mass effect. Cerebral ventricles: No ventriculomegaly. Bones/joints: Left posterior parietal skull gap compatible with craniectomy. No acute fracture. Paranasal sinuses: Visualized sinuses are unremarkable. Minimal mucosal thickening left posterior ethmoid sinus. No fluid levels. Mastoid air cells: Visualized mastoid air cells are well aerated. Soft tissues: Unremarkable. IMPRESSION: 1. No acute intracranial abnormality. 2. Left posterior parietal craniectomy with chronic posterior parietal lobe encephalomalacia. 3. 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 Thank you for allowing us to participate in the care of your patient. Dictated and Authenticated by: Ila Barth MD 10/13/2020 12:10 PM Central Time ([place] & [place]) - Re-Assessments/Exams Free Text/Narrative Re-Assessment/Exam: 10/13/20 13:54 Patient states he feels 100% better than when he arrived. Departure - Departure Time of Disposition: 13:55 Disposition: Home, Self-Care 01 Condition: Good Clinical Impression: Right sided weakness, History of glioma - Discharge Information *PRESCRIPTION DRUG MONITORING PROGRAM REVIEWED*: No *COPY OF PRESCRIPTION DRUG MONITORING REPORT IN PATIENT KATHY: No Instructions: Weakness, [id number] Forms: ED Department Discharge Additional Instructions: Take your medications as prescribed Follow-up with your primary care provider this week Sepsis Event Note (ED) - Evaluation Sepsis Screening Result: No Definite Risk - Focused Exam Vital Signs: Vital Signs Temp Pulse Resp BP Pulse Ox 10/13/20 12:03 97.6 F 88 18 147/91 H 99 - My Orders Last 24 Hours: My Active Orders 10/13/20 12:06 EKG Documentation Completion [RC] STAT 10/13/20 12:21 LEVETIRACETAM, S [REF] Stat - Assessment/Plan Last 24 Hours: My Active Orders 10/13/20 12:06 EKG Documentation Completion [RC] STAT 10/13/20 12:21 LEVETIRACETAM, S [REF] Stat
[2020-10-13 12:45] LABS: CHLORIDE,CL 106 mmol/L (98-107); SODIUM,NA 139 mmol/L (136-145)
[2020-10-13] MEDS ORDERED: levETIRAcetam in NaCl (iso-os) 500 MG in Premix Bag 1 BAG IV ONE ×2 (13:04)
== END 2020-10-13 13:58 | disposition home or self-care (01) ==
LOC: DL.ED 11:38
DX: R53.1 Weakness (principal); Z85.841 Personal history of malignant neoplasm of brain; R56.9 Unspecified convulsions; Z79.899 Other long term (current) drug therapy
CPT/HCPCS: 36415; 70450; 80053; 80177; 80305; 80307; 81001; 85025; 85610; 93005; 93010; 96365; 99283; 99285; J1953

== ENCOUNTER 2020-10-18 18:30 | Emergency (ER) | payer BC, OTHER ==
--- NOTE | 2020-10-18 19:16 | EDM.PDOC ---
ED HPI GENERAL MEDICAL PROBLEM - General Chief Complaint: Neuro Symptoms/Deficits Stated Complaint: SIEZURES Time Seen by Provider: 10/18/20 19:10 Source of Information: Reports: Patient, Family History Limitations: Reports: No Limitations - History of Present Illness INITIAL COMMENTS - FREE TEXT/NARRATIVE: spouse states pt been having more problems with memory and seizures since a fall Wednesday but did see Neuro and had neg MRI Wednesday but pt still same and Neuro team told them to come to ER. pt states all this started after being Dx with brain cancer few years ago. did have surgery at [place] and has been f/u there routinely. denies f/c and had neg covid August. - Related Data Allergies Allergy/AdvReac Type Severity Reaction Status Date / Time No Known Allergies Allergy Verified 10/18/20 18:55 Home Meds: Home Meds Tigecycline 50 mg IV DAILY 10/13/20 [History] ceFAZolin Sodium In 0.9 % NaCl [Cefazolin 2 G/100 ml-0.9% NaCl] 2 gm IV DAILY 10/13/20 [History] cefOXitin Sodium [Cefoxitin] 1 gm IV DAILY 10/13/20 [History] levETIRAcetam [Keppra XR] 500 mg PO BID 10/13/20 [History] Linezolid in Dextrose 5% [Linezolid 600 mg/300 ml-D5w] 600 mg PO DAILY 10/18/20 [History] Past Medical History - Past Health History Medical/Surgical History: Denies Medical/Surgical History HEENT History: Reports: Impaired Vision Cardiovascular History: Reports: None Respiratory History: Reports: None Gastrointestinal History: Reports: None Genitourinary History: Reports: None Musculoskeletal History: Reports: Fracture, Other (See Below) Other Musculoskeletal History: missing bone flap to left side of head Neurological History: Reports: Seizure Psychiatric History: Reports: None Endocrine/Metabolic History: Reports: None Hematologic History: Reports: None Immunologic History: Reports: None Oncologic (Cancer) History: Reports: Other (See Below) Other Oncologic History: Brain CA and brain surg. Dermatologic History: Reports: None - Infectious Disease History Infectious Disease History: Reports: None - Past Surgical History Head Surgeries/Procedures: Reports: None Oncologic Surgical History: Reports: Other (See Below) Other Oncologic Surgeries/Procedures: Brain tumor removal L) side of brain Social & Family History - Family History Family Medical History: No Pertinent Family History - Tobacco Use Tobacco Use Status *Q: Never Tobacco User - Caffeine Use Caffeine Use: Reports: None - Recreational Drug Use Recreational Drug Use: No ED ROS GENERAL - Review of Systems Review Of Systems: Comprehensive ROS is negative, except as noted in HPI. - Physical Exam Exam: See Below Exam Limited By: No Limitations General Appearance: Alert, WD/WN, Mild Distress, Other (distraught) Ears: Hearing Grossly Normal Throat/Mouth: Normal Voice, No Airway Compromise Head Exam: Atraumatic Neck: Non-Tender, Full Range of Motion Respiratory/Chest: No Respiratory Distress Cardiovascular: Regular Rate, Rhythm GI/Abdominal: Soft, Non-Tender (Male) Exam: Deferred Rectal (Males) Exam: Deferred Neuro Exam (Abbreviated): Alert, Oriented, Normal Cognition Psychiatric: Flat Affect Skin Exam: Warm, Dry, Normal Color Course - Vital Signs Last Recorded V/S: Last Vital Signs Temp 35.8 C L 10/18/20 18:49 Pulse 86 10/18/20 18:49 Resp 16 10/18/20 18:49 BP 141/92 H 10/18/20 18:49 Pulse Ox 100 10/18/20 18:49 - Orders/Labs/Meds Labs: Laboratory Tests 10/18/20 10/18/20 10/18/20 Range/Units 19:32 19:32 19:32 WBC 6.3 (5.0-10.0) 10^3/uL RBC 3.80 L (4.6-6.2) 10^6/uL Hgb 12.5 L (14.0-18.0) g/dL Hct 37.1 L (40.0-54.0) % MCV 97.6 (80-100) fL MCH 32.9 (27.0-34.0) pg MCHC 33.7 (33.0-35.0) g/dL Plt Count 311 (150-450) 10^3/uL Neut % (Auto) 71.3 (42.2-75.2) % Lymph % (Auto) 16.3 L (20.5-50.1) % [place] % (Auto) 10.5 H (2-8) % Eos % (Auto) 1.4 (1.0-3.0) % Baso % (Auto) 0.5 (0.0-1.0) % Sodium 137 (136-145) mmol/L Potassium 4.2 (3.5-5.1) mmol/L Chloride 101 (98-107) mmol/L Carbon Dioxide 25 (21-32) mmol/L Anion Gap 15.2 H (7-13) mEq/L BUN 18 (7-18) mg/dL Creatinine 1.24 (0.70-1.30) mg/dL Est Cr Clr Drug Dosing 87.47 mL/min Estimated GFR (MDRD) > 60 BUN/Creatinine Ratio 14.5 (No establ ref range) Glucose 94 (74-99) mg/dL Lactic Acid 2.3 H* (0.4-2.0) mmol/L Calcium 8.4 L (8.5-10.1) mg/dL Total Bilirubin 0.8 (0.2-1.0) mg/dL AST 15 (15-37) U/L ALT 30 (16-63) U/L Alkaline Phosphatase 82 (46-116) U/L Total Protein 7.3 (6.4-8.2) g/dL Albumin 3.1 L (3.4-5.0) g/dL Globulin 4.2 Albumin/Globulin Ratio 0.74 Urine Color (YELLOW) Urine Appearance (CLEAR) Urine pH (5.0-9.0) Ur Specific [place] (1.005-1.030) Urine Protein (NEGATIVE) Urine Glucose (UA) (NEGATIVE) Urine Ketones (NEGATIVE) Urine Occult Blood (NEGATIVE) Urine Nitrite (NEGATIVE) Urine Bilirubin (NEGATIVE) Urine Urobilinogen (0.2-1.0) mg/dL Ur Leukocyte Esterase (NEGATIVE) Urine Opiates Screen (NEGATIVE) Ur Oxycodone Screen (NEGATIVE) Urine Methadone Screen (NEGATIVE) Ur Barbiturates Screen (NEGATIVE) U Tricyclic Antidepress (NEGATIVE) Ur Phencyclidine Scrn (NEGATIVE) Ur Amphetamine Screen (NEGATIVE) U Methamphetamines Scrn (NEGATIVE) Urine MDMA Screen (NEGATIVE) U Benzodiazepines Scrn (NEGATIVE) Urine Cocaine Screen (NEGATIVE) U Marijuana (THC) Screen (NEGATIVE) 10/18/20 10/18/20 Range/Units 19:59 19:59 WBC (5.0-10.0) 10^3/uL RBC (4.6-6.2) 10^6/uL Hgb (14.0-18.0) g/dL Hct (40.0-54.0) % MCV (80-100) fL MCH (27.0-34.0) pg MCHC (33.0-35.0) g/dL Plt Count (150-450) 10^3/uL Neut % (Auto) (42.2-75.2) % Lymph % (Auto) (20.5-50.1) % [place] % (Auto) (2-8) % Eos % (Auto) (1.0-3.0) % Baso % (Auto) (0.0-1.0) % Sodium (136-145) mmol/L Potassium (3.5-5.1) mmol/L Chloride (98-107) mmol/L Carbon Dioxide (21-32) mmol/L Anion Gap (7-13) mEq/L BUN (7-18) mg/dL Creatinine (0.70-1.30) mg/dL Est Cr Clr Drug Dosing mL/min Estimated GFR (MDRD) BUN/Creatinine Ratio (No establ ref range) Glucose (74-99) mg/dL Lactic Acid (0.4-2.0) mmol/L Calcium (8.5-10.1) mg/dL Total Bilirubin (0.2-1.0) mg/dL AST (15-37) U/L ALT (16-63) U/L Alkaline Phosphatase (46-116) U/L Total Protein (6.4-8.2) g/dL Albumin (3.4-5.0) g/dL Globulin Albumin/Globulin Ratio Urine Color Yellow (YELLOW) Urine Appearance Clear (CLEAR) Urine pH 6.5 (5.0-9.0) Ur Specific [place] 1.025 (1.005-1.030) Urine Protein Negative (NEGATIVE) Urine Glucose (UA) Negative (NEGATIVE) Urine Ketones Negative (NEGATIVE) Urine Occult Blood Negative (NEGATIVE) Urine Nitrite Negative (NEGATIVE) Urine Bilirubin Negative (NEGATIVE) Urine Urobilinogen 0.2 (0.2-1.0) mg/dL Ur Leukocyte Esterase Negative (NEGATIVE) Urine Opiates Screen Negative (NEGATIVE) Ur Oxycodone Screen Negative (NEGATIVE) Urine Methadone Screen Negative (NEGATIVE) Ur Barbiturates Screen Negative (NEGATIVE) U Tricyclic Antidepress Negative (NEGATIVE) Ur Phencyclidine Scrn Negative (NEGATIVE) Ur Amphetamine Screen Negative (NEGATIVE) U Methamphetamines Scrn Negative (NEGATIVE) Urine MDMA Screen Negative (NEGATIVE) U Benzodiazepines Scrn Negative (NEGATIVE) Urine Cocaine Screen Negative (NEGATIVE) U Marijuana (THC) Screen Negative (NEGATIVE) - Re-Assessments/Exams Free Text/Narrative Re-Assessment/Exam: 10/18/20 21:[address] Kaplan @ [facility] who kindly accepted pt. Departure - Departure Time of Disposition: 21:19 Disposition: DC/Tfer to Acute Hospital 02 Condition: Fair Clinical Impression: Seizure, History of traumatic head injury - Discharge Information Forms: [facility] Sepsis Event Note (ED) - Evaluation Sepsis Screening Result: No Definite Risk - Focused Exam Vital Signs: Vital Signs Temp Pulse Resp BP Pulse Ox 10/18/20 18:49 35.8 C L 86 16 141/92 H 100
[2020-10-18 19:59] LABS: ANION GAP 15.2 mEq/L (7-13); CHLORIDE,CL 101 mmol/L (98-107); SODIUM,NA 137 mmol/L (136-145)
== END 2020-10-18 21:46 ==
LOC: DL.ED 18:30
DX: R56.9 Unspecified convulsions (principal); Z79.899 Other long term (current) drug therapy; Z87.820 Personal history of traumatic brain injury
CPT/HCPCS: 36415; 80053; 80305-QW; 81003; 83605; 85025; 99284